=== PATIENT | female | born 1930 | race Caucasian/White ===

== ENCOUNTER 2016-07-09 20:08 | Emergency (ER) | payer SELFPAY ==
[~2016-07-09] VITALS: Ht 149.9 cm; Wt 50.0 kg
[~2016-07-09 20:08] MED LIST: ASPI-535 PO; BENA40TA54 PO; CARV25TA79 PO; CHOL1POW PO; CLOP75TA27 PO
[2016-07-09 20:30] VITALS: Ht 149.9 cm; Wt 50.0 kg
[2016-07-09] MEDS ORDERED: ONDANSETRON (ODT) 4 MG TAB ODT STA (21:26)
[2016-07-09] MEDS ORDERED: HYDROCODONE/APAP (10/325) TAB PO ONE (21:30)
[2016-07-09] MEDS ORDERED: DOCU-144 PO (22:37)
[2016-07-09] MEDS ORDERED: HYDR-902 PO (22:37)
--- NOTE | 2016-07-09 22:51 | RADRPT ---
PROCEDURE: XR Right Shoulder. CLINICAL INDICATION: Trauma. Pain. TECHNIQUE: Three views of the right shoulder are available for review. COMPARISON: None available FINDINGS: No acute fracture or dislocation is seen. The glenohumeral joint is unremarkable. Ossific density s uperior lateral aspect of the humeral head is likely related to rotator cuff ligamentous calcificati ons. The acromioclavicular joint is intact. The visualized portions of the right clavicle and upper right rib cage are unremarkable. No radiopaque foreign body is identified. Bone mineralization is within normal limits. Soft tissues are unremarkable. IMPRESSION: 1. No acute fracture or dislocation is seen. 2. Probable rotator cuff calcifications. RPTAT: HMVK .Charles Biggs MD, Date Time Electronically viewed and signed by .Charles Biggs MD, on 07/09/2016 22:50 .K/
--- NOTE | 2016-07-09 22:51 | RADRPT ---
PROCEDURE: XR Elbow. CLINICAL INDICATION: Post traumatic right elbow pain TECHNIQUE: AP, lateral and oblique views of the right elbow performed. COMPARISON: None. FINDINGS: Decreased mineralization cannot exclude osteopenia. Abnormal longitudinal fracture lucency through t he medial epicondyle extends to the articular surface of the trochlea . Mild cephalad displacement o f the medial fracture fragment by 6 mm is present. The proximal radius and ulna are unremarkable di ffuse soft tissue swelling is noted. A probable joint effusion is seen. RPTAT:HJJR IMPRESSION: Acute, closed, mildly displaced medial humeral epicondyle fracture of the right elbow with intra-art icular extension. Physician Violette Date Time Electronically viewed and signed by Physician Violette on 07/09/2016 22:51 /
[2016-07-09 22:58] VITALS: BP 148/92; PULSE 76; RESP 24
--- NOTE | 2016-07-09 23:16 | ERD ---
ER Documentation Chief Complaint Date/Time DATE: 07/09/16 TIME: 23:13 Chief Complaint MECH FALL SAT, RIGHT ARM SWELLING PAIN. POSS FX. NO KO HPI Patient is an 86-year-old female with CVA and hypertension who presents with right-sided arm pain. She fell on Saturday. She has right-sided elbow pain with bruising and swelling. She fell off one step at that time. The bruising is gotten worse over the past few days. The patient lives with her daughter. She is right-handed. She took ibuprofen today. She denies any other injuries. She does not currently have a primary doctor. Upon review of old medical records this the patient's third visit to the ER since 2012. ROS All systems reviewed and are negative except as per history of present illness. Medications Home Meds Active Scripts Docusate Sodium* (Colace*) 100 Mg Capsule, 100 MG PO TID, #30 CAP Prov:SKYLA YAO MD 07/09/16 Hydrocodone/Acetaminophen ([place] 10-325 Tablet) 1 Each Tablet, 1 TAB PO Q6H Y for PAIN, #12 TAB Prov:SKYLA YAO MD 07/09/16 Reported Medications Aspirin Ec (Aspir 81) 81 Mg Tablet.dr, 81 MG PO DAILY 08/02/12 Clopidogrel Bisulfate (Clopidogrel) 75 Mg Tablet, 75 MG PO DAILY 08/02/12 Benazepril Hcl* (Lotensin*) 40 Mg Tablet, 40 MG PO DAILY 08/02/12 Carvedilol* (Carvedilol*) 25 Mg Tablet, 25 MG PO BID 08/02/12 Discontinued Reported Medications Cholecalciferol (Vitamin D3) 1 Gm Powder, 1000 UNITS PO TID 08/02/12 Allergies Allergies: Coded Allergies: dextromethorphan (Verified Allergy, Intermediate, SWELLING, 07/09/16) SWOLLEN LIPS, WHEEZING guaifenesin (Unverified Allergy, Intermediate, WHEEZING, 07/09/16) WHEEZING PER EMS PMhx/Soc History of Surgery: No Anesthesia Reaction: No Hx Neurological Disorder: No Hx Respiratory Disorders: No Hx Cardiac Disorders: Yes (HTN) Hx Psychiatric Problems: No Hx Miscellaneous Medical Probl: No Hx Alcohol Use: No Hx Substance Use: No Hx Tobacco Use: No Smoking Status: Never smoker FmHx Family History: diabetes Physical Exam Vitals Vital Signs Date Time Temp Pulse Resp B/P Pulse Ox O2 Delivery O2 Flow Rate FiO2 07/09/16 22:58 76 24 148/92 99 Room Air 07/09/16 20:30 98.0 76 20 139/89 100 Physical Exam Const: Mild distress secondary to pain Head: Atraumatic Eyes: Normal Conjunctiva ENT: Normal External Ears, Nose and Mouth. Neck: Full range of motion..~ No meningismus. Resp: Clear to auscultation bilaterally Cardio: Regular rate and rhythm, no murmurs Abd: Soft, non tender, non distended. Normal bowel sounds Skin: Significant bruising of the right elbow with swelling Back: No midline or flank tenderness Ext: Bruising and swelling to the right elbow, radial pulse is intact in the right upper extremity Neur: Awake and alert, 3 nerve roots of the right upper extremity are intact Psych: Normal Mood and Affect Results 24 hrs Current Medications Medications (Trade) Dose Ordered Sig/Norris Route PRN Reason Start Time Stop Time Status Last Admin Dose Admin Acetaminophen/ Hydrocodone Bitart ([place] (325)) 1 tab ONCE ONCE PO 07/09/16 21:30 07/09/16 21:31 DC 07/09/16 21:39 Ondansetron HCl (Zofran Odt) 4 mg ONCE STAT ODT 07/09/16 21:26 07/09/16 21:27 DC 07/09/16 21:39 Procedures/MDM X-ray Elbow 3V Interpreted by me: Fat Pads: [Normal] Bones: Elbow fracture Joints: [No dislocation] Foreign body: [None] X-ray Shoulder 3V Interpreted by me: Bones: No fracture Joints: No dislocation Foreign body: None Splint Note Type: Posterior long-arm Location: Right upper extremity Indication: Elbow fracture Splint Assessment: Neurovascularly intact post splint placement with good fit. Patient is a 86-year-old female who presents after a mechanical fall. She has an elbow fracture. She will be placed in a splint and sling. She will need follow-up with orthopedic surgery. I will give her information for Dr. Ramon. I do not believe she requires admission to the hospital this time. I believe outpatient management is appropriate. The patient understands the plan is okay for discharge. She will be given a prescription for Spalding and Colace. She can return for any worsening symptoms. Departure Diagnosis: Primary Impression: Elbow fracture Encounter type: initial encounter Fracture type: closed Laterality: right Qualified Code: S42.401A - Elbow fracture, right, closed, initial encounter Additional Impression: Fall Encounter type: initial encounter Qualified Code: W19.XXXA - Fall, initial encounter Condition: Fair Patient Instructions: Elbow Fracture Referrals: DANIELA RAMON MD Additional Instructions: Specialist:Usted tiene sebastian condicin mdica que requiere que yulia a un especialista dentro de los prximos 1-2 [email or web address] FAVOR,CON ROBERTS SEGUIMIENTO DE PRIMARIA PHSICIAN refferal. SI USTED NO TIENE UN MDICO GENERAL Y / O USTED NO PUEDE PAGAR alicia a un mdico,los siguientes jordan RECURSOS sido suministrado a usted. ES ROBERTS RESPONSABILIDAD PARA SER VISTOS POR EL ESPECIALISTA: SKYLA YAO MD Jul 09, 2016 23:16
== END 2016-07-09 23:28 | disposition home or self-care (01) ==
LOC: E/R 20:08
DX: S42.401A Unspecified fracture of lower end of right humerus, initial encounter for closed fracture (principal); R40.2252 Coma scale, best verbal response, oriented, at arrival to emergency department; I10 Essential (primary) hypertension; R40.2142 Coma scale, eyes open, spontaneous, at arrival to emergency department; R40.2362 Coma scale, best motor response, obeys commands, at arrival to emergency department; W18.39XA Other fall on same level, initial encounter; Y92.9 Unspecified place or not applicable; Z79.82 Long term (current) use of aspirin; Z79.01 Long term (current) use of anticoagulants

== ENCOUNTER 2016-07-15 15:50 | Emergency (ER) | payer MEDICAID ==
[~2016-07-15] VITALS: Ht 142.2 cm; Wt 51.0 kg
[~2016-07-15 15:50] MED LIST changes: -CHOL1POW PO; +DOCU-144 PO; +HYDR-902 PO
[2016-07-15 15:54] VITALS: Ht 142.2 cm; Wt 51.0 kg
--- NOTE | 2016-07-15 16:59 | ERD ---
ER Documentation Chief Complaint Date/Time DATE: 07/15/16 TIME: 16:57 Chief Complaint r. arm bleeding after fall x 4 days ago HPI This 86 year female who was seen at outside ER and sustained a distal humerus fracture scheduled for surgery tomorrow is having some bleeding coming out underneath her splint. There is been no other injury and she is not complaining of any pain in the family is here concerned as to why she is bleeding. ROS All systems reviewed and are negative except as per history of present illness. Medications Home Meds Active Scripts Docusate Sodium* (Colace*) 100 Mg Capsule, 100 MG PO TID, #30 CAP Prov:SKYLA YAO MD 07/09/16 Hydrocodone/Acetaminophen ([place] 10-325 Tablet) 1 Each Tablet, 1 TAB PO Q6H Y for PAIN, #12 TAB Prov:SKYLA YAO MD 07/09/16 Reported Medications Aspirin Ec (Aspir 81) 81 Mg Tablet.dr, 81 MG PO DAILY 08/02/12 Clopidogrel Bisulfate (Clopidogrel) 75 Mg Tablet, 75 MG PO DAILY 08/02/12 Benazepril Hcl* (Lotensin*) 40 Mg Tablet, 40 MG PO DAILY 08/02/12 Carvedilol* (Carvedilol*) 25 Mg Tablet, 25 MG PO BID 08/02/12 Discontinued Reported Medications Cholecalciferol (Vitamin D3) 1 Gm Powder, 1000 UNITS PO TID 08/02/12 Allergies Allergies: Coded Allergies: dextromethorphan (Verified Allergy, Intermediate, SWELLING, 07/15/16) SWOLLEN LIPS, WHEEZING guaifenesin (Unverified Allergy, Intermediate, WHEEZING, 07/15/16) WHEEZING PER EMS PMhx/Soc History of Surgery: No Anesthesia Reaction: No Hx Neurological Disorder: Yes (CVA) Hx Respiratory Disorders: No Hx Cardiac Disorders: Yes (HTN) Hx Psychiatric Problems: No Hx Miscellaneous Medical Probl: No Hx Alcohol Use: No Hx Substance Use: No Hx Tobacco Use: No Smoking Status: Never smoker FmHx Family History: No coronary disease Physical Exam Vitals Vital Signs Date Time Temp Pulse Resp B/P Pulse Ox O2 Delivery O2 Flow Rate FiO2 07/15/16 15:54 97.5 78 18 145/67 95 Physical Exam Const: Well-developed, well-nourished Head: Atraumatic, normocephalic Eyes: Normal Conjunctiva, PERRLA, EOMI, normal sclera, no nystagmus ENT: Normal External Ears, Nose and Mouth, moist mucus membranes. Neck: Full range of motion. No meningismus, no lymphadenopathy. Resp: Clear to auscultation bilaterally, no wheezing, rhonchi, rales Cardio: Regular rate and rhythm, no murmurs, S1 S2 present Abd: Soft, non tender x 4, non distended. Normal bowel sounds, no guarding or rebound, no pulsitile abdominal masses or bruits Skin: No petechiae or rashes, no ecchymosis , no maculopapular rash, the cast splint was removed and there is a linear skin abrasion/tear along the proximal forearm is not bleeding now that is about 5 cm in length is not suturable Back: No midline or flank tenderness Ext: No cyanosis, or edema, FROM x 4, normal inspection, neurovascularly intact x 4 Neur: Awake and alert, STR 5/5 x 4, sensation intact x 4, no focal findings, cerebellum intact Psych: Normal Mood and Affect Procedures/MDM Splint removal and replacement Departure Diagnosis: Primary Impression: Skin tear of forearm without complication Encounter type: initial encounter Laterality: right Qualified Code: S51.811A - Skin tear of forearm without complication, right, initial encounter Condition: Stable Patient Instructions: CARLOS Zimmerman DO Jul 15, 2016 16:59
[2016-07-15 17:05] VITALS: BP 139/66; PULSE 79; RESP 18; TEMP 97.5
== END 2016-07-15 17:11 | disposition home or self-care (01) ==
LOC: E/R 15:50
DX: S51.811A Laceration without foreign body of right forearm, initial encounter (principal); R40.2252 Coma scale, best verbal response, oriented, at arrival to emergency department; I10 Essential (primary) hypertension; R40.2142 Coma scale, eyes open, spontaneous, at arrival to emergency department; R40.2362 Coma scale, best motor response, obeys commands, at arrival to emergency department; X58.XXXA Exposure to other specified factors, initial encounter; Y92.9 Unspecified place or not applicable; Z79.82 Long term (current) use of aspirin; Z79.01 Long term (current) use of anticoagulants
CPT/HCPCS: 29105; Z7502

== ENCOUNTER 2018-05-15 12:03 | Emergency (ER) | payer MEDICAID, OTHER ==
[~2018-05-15] VITALS: Ht 152.4 cm; Wt 50.0 kg
[~2018-05-15 12:03] MED LIST changes: +HYDR-3980 PO; -HYDR-902 PO
[2018-05-15] MEDS ORDERED: FAMOTIDINE 20 MG INJ IV STA (12:05)
[2018-05-15] MEDS ORDERED: BELLADONNA/PHENOBARBITAL TAB PO STA (12:05)
[2018-05-15] MEDS ORDERED: ONDANSETRON 4 MG INJ IV STA (12:05)
[2018-05-15] MEDS ORDERED: LIDOCAINE/MYLANTA 40 ML BTL PO STA (12:05)
[2018-05-15] MEDS ORDERED: SOD CHLORIDE 0.9% 1,000 ML IV STA (12:05)
[2018-05-15] MEDS ORDERED: LORAZEPAM 2 MG INJ IV ONE (12:30)
[2018-05-15 12:31] VITALS: Ht 152.4 cm; Wt 50.0 kg
[2018-05-15] MEDS ORDERED: DONE10TA7 PO (13:19)
[2018-05-15 15:19] VITALS: BP 120/74; PULSE 49; RESP 18
--- NOTE | 2018-05-16 09:09 | ERD ---
ER Documentation Chief Complaint Chief Complaint nausea, dizziness s/p starting Aricept 10mg at 0930am HPI This is an 88-year-old female with a known history of dementia. The patient presents to the emergency department after she had a sudden onset of nausea dizziness and tearfulness roughly 30 minutes after taking her first dose of Aricept. The patient was prescribed 10 mg of Aricept to take on a daily basis per primary care physician. She lives with her daughter who helps her to attend her activities of daily living. The daughter stated she gave the Aricept to the patient there is no coughing choking or gagging episode. Shortly afterwards she found the patient in the bathroom sitting on the toilet crying. There is no syncope or near syncope episode. There is no shortness of breath. The patient denied a headache. She stated she felt nauseous and dizzy. She had one episode of nonbloody nonbilious emesis. She denied any abdominal pain. She no frequency urgency or dysuria. There is no blunt or penetrating head chest or abdominal trauma. ROS All systems reviewed and are negative except as per history of present illness. Medications Home Meds Reported Medications Donepezil* (Aricept*) 10 Mg Tablet, 10 MG PO DAILY, TAB 05/15/18 Clopidogrel Bisulfate (Clopidogrel) 75 Mg Tablet, 75 MG PO DAILY 08/02/12 Benazepril Hcl* (Lotensin*) 40 Mg Tablet, 40 MG PO DAILY 08/02/12 Carvedilol* (Carvedilol*) 25 Mg Tablet, 25 MG PO BID 08/02/12 Discontinued Reported Medications Aspirin Ec (Aspir 81) 81 Mg Tablet.dr, 81 MG PO DAILY 08/02/12 Discontinued Scripts Docusate Sodium* (Colace*) 100 Mg Capsule, 100 MG PO TID, #30 CAP Prov:SKYLA YAO MD 07/09/16 Hydrocodone/Acetaminophen ([place] 10-325 Tablet) 1 Each Tablet, 1 TAB PO Q6H PRN for PAIN, #12 TAB Prov:SKYLA YAO MD 07/09/16 Allergies Allergies: Coded Allergies: dextromethorphan (Verified Allergy, Intermediate, SWELLING, 07/15/16) SWOLLEN LIPS, WHEEZING guaifenesin (Unverified Allergy, Intermediate, WHEEZING, 07/15/16) WHEEZING PER EMS PMhx/Soc History of Surgery: No Anesthesia Reaction: No Hx Neurological Disorder: Yes (CVA) Hx Respiratory Disorders: No Hx Cardiac Disorders: Yes (HTN) Hx Psychiatric Problems: Yes (early dementia) Hx Miscellaneous Medical Probl: Yes (Vit D deficiency) Hx Alcohol Use: No Hx Substance Use: No Hx Tobacco Use: No Smoking Status: Never smoker Physical Exam Vitals Vital Signs Date Temp Pulse Resp B/P (MAP) Pulse Ox O2 O2 Flow FiO2 Time Delivery Rate 05/15/18 49 18 120/74 99 Room Air 15:19 (89) 05/15/18 98.8 57 22 176/85 95 12:31 (115) Physical Exam Constitutional:Well-developed. Well-nourished. Patient tearful and dry heaving. HEENT:Normocephalic. Atraumatic.Pupils were equal round reactive to light. Dry mucous membranes.No tonsillar exudates. Neck: No nuchal rigidity. No lymphadenopathy. No posterior cervical spine tenderness or step-offs. Respiratory: Not using accessory muscles of respiration.Lungs were clear to auscultation bilaterally. No rhonchi. No rales. No wheezing. Cardiovascular: Regular rate regular rhythm.No murmurs. No rubs were ap preciated.S1, S2 normal. Distal pulses are palpable 2+ bilaterally. GI: Abdomen was soft. Nontender. Non Distended. No pulsatile abdominal masses or bruits. No rebound. No guarding. Bowel sounds were present and normal. Muscle skeletal: Full range of motion of both the upper and lower extremities b ilaterally.Normal muscle tone.No assymetrical calf tenderness or swelling. Skin: No petechia, no purpura. No lesions on the palms or the soles of the feet. No maculopapular rash. NEURO: Patient was alert, awake, orientated to person place but not to time. Patient is [place]-speaking. Patient was able to ambulate without any difficulty Result Diagram: 05/15/18 1240 05/15/18 1240 Results 24 hrs Laboratory Tests Test 05/15/18 12:40 05/15/18 14:41 White Blood Count 8.5 10^3/ul Red Blood Count 4.88 10^6/ul Hemoglobin 13.7 g/dl Hematocrit 41.8 % Mean Corpuscular Volume 85.7 fl Mean Corpuscular Hemoglobin 28.1 pg Mean Corpuscular Hemoglobin Concent 32.8 g/dl Red Cell Distribution Width 14.5 % Platelet Count 169 10^3/UL Mean Platelet Volume 11.3 fl Immature Granulocytes % 0.700 % Neutrophils % 64.7 % Lymphocytes % 21.7 % Monocytes % 11.0 % Eosinophils % 1.2 % Basophils % 0.7 % Nucleated Red Blood Cells % 0.0 /100WBC Immature Granulocytes # 0.060 10^3/ul Neutrophils # 5.5 10^3/ul Lymphocytes # 1.8 10^3/ul Monocytes # 0.9 10^3/ul Eosinophils # 0.1 10^3/ul Basophils # 0.1 10^3/ul Nucleated Red Blood Cells # 0.0 10^3/ul Prothrombin Time 12.8 Sec Prothrombin Time Ratio 1.0 INR International Normalized Ratio 0.95 Activated Partial Thromboplast Time 23.9 Sec Sodium Level 140 mmol/L Potassium Level 4.7 mmol/L Chloride Level 102 mmol/L Carbon Dioxide Level 27 mmol/L Anion Gap 11 Blood Urea Nitrogen 25 mg/dl Creatinine 0.63 mg/dl Est Glomerular Filtrat Rate mL/min mL/min Glucose Level 117 mg/dl Calcium Level 10.0 mg/dl Total Bilirubin 0.4 mg/dl Direct Bilirubin 0.00 mg/dl Indirect Bilirubin 0.4 mg/dl Aspartate Amino Transf (AST/SGOT) 31 IU/L Alanine Aminotransferase (ALT/SGPT) 14 IU/L Alkaline Phosphatase 94 IU/L Troponin I < 0.012 ng/ml Total Protein 8.4 g/dl Albumin 4.3 g/dl Globulin 4.10 g/dl Albumin/Globulin Ratio 1.04 Amylase Level 124 U/L Lipase 64 U/L Urine Color STRAW Urine Clarity CLEAR Urine pH 7.0 Urine Specific [place] 1.011 Urine Ketones TRACE mg/dL Urine Nitrite NEGATIVE mg/dL Urine Bilirubin NEGATIVE mg/dL Urine Urobilinogen NEGATIVE mg/dL Urine Leukocyte Esterase NEGATIVE Cindy/ul Urine Hemoglobin NEGATIVE mg/dL Urine Glucose NEGATIVE mg/dL Urine Total Protein NEGATIVE mg/dl Current Medications Medications Dose Sig/Norris Start Time Status Last (Trade) Ordered Route PRN Stop Time Admin Dose Reason Admin Sodium 1,000 ml @ Q1H STAT 05/15/18 DC 05/15/18 Chloride 1,000 mls/hr IV 12:05 13:03 05/15/18 13:04 Ondansetron 4 mg ONCE STAT 05/15/18 DC 05/15/18 HCl (Zofran IV 12:05 13:03 Inj) 05/15/18 12:08 Famotidine 20 mg ONCE STAT 05/15/18 DC 05/15/18 (Pepcid Iv) IV 12:05 13:03 05/15/18 12:08 40 ml ONCE STAT 05/15/18 DC 05/15/18 Miscellaneous PO 12:05 13:03 Medication 05/15/18 12:08 (Gi Cocktail (2)) Bell[place]onna/ 2 tab ONCE STAT 05/15/18 DC 05/15/18 Phenobarbital PO 12:05 13:03 () 05/15/18 12:08 Lorazepam 1 mg ONCE ONCE 05/15/18 DC 05/15/18 (Ativan) IV 12:30 13:03 05/15/18 12:31 Procedures/MDM This is an 88-year-old female that presented to the emergency department after she appeared to have an adverse reaction to medication. I did feel is necessary to rule out other life-threatening etiologies that could be causing the patient's changes in her mental status. There is no evidence of an infectious process such as pneumonia. Chest radiograph showed no infiltrates or pneumothorax and no evidence of aspiration pneumonia or foreign body aspiration. Urinalysis was negative for urinary tract infection. The patient had no electrolyte abnormalities. The patient's abdomen was benign with no peritoneal signs. The patient received IV fluids that she did appear to have clinical dehydration. There is no evidence of atypical myocardial infarction. 12 Lead EKG tracing ordered and reviewed by myself showed: Normal sinus rhythm of 61 bpm and no arrhythmia. HI interval normal. QRS duration normal. No ST segment elevation No ST segment depression. No changes consistent with acute ischemia. Observation Note: Time: 4 hours Family Hx: No Hypertension Evaluation: Multiple exams showed improving symptoms and no evidence of worsening of her symptoms. She had significant improvement of her symptoms. I explained to the family that I felt it was necessary for them to follow-up with her primary care physician to discuss continuation of the Aricept. However I also indicated to the family that this could have been an unrelated incident of of an acute anxiety reaction. The patient was discharged home in fair condition. They were instructed to return to the emergency department at any time if there was any worsening of their condition. The patient stated they would follow up with their PCP in the next 24-48 hours to initiate a suitable medication regimen under the care of their PCP as well as to allow their PCP to monitor any drug reactions. The patient was discharged home with prescriptions after they gave informed consent to the new medication. They were also fully informed by myself on the adverse effects and adverse drug interactions in order to provide adequate safeguards to prevent possible adverse reactions to medications. Departure Diagnosis: Primary Impression: Adverse drug reaction Encounter type: initial encounter Qualified Codes: T50.905A - Adverse effect of unspecified drugs, medicaments and biological substances, initial encounter Additional Impression: Nausea and vomiting Vomiting type: unspecified Vomiting Intractability: non-intractable Qualified Codes: R11.2 - Nausea with vomiting, unspecified Condition: Fair Patient Instructions: Drug Reaction, Other Referrals: JEFFRY VANG MD (PCP) JIAN MIRZA MD May 16, 2018 09:08
== END 2018-05-15 15:55 | disposition home or self-care (01) ==
LOC: E/R 12:03
DX: T44.0X1A Poisoning by anticholinesterase agents, accidental (unintentional), initial encounter (principal); I10 Essential (primary) hypertension; R10.9 Unspecified abdominal pain; Z86.73 Personal history of transient ischemic attack (TIA), and cerebral infarction without residual deficits
CPT/HCPCS: 71045; 80053; 81003; 82150; 83690; 84484; 85025; 85610; 85730; 87086; 93005; J2060; J2405; J7030; Z7610; 96374; 96375; P9612

== ENCOUNTER 2018-06-05 11:07 | Emergency (ER) | payer OTHER ==
[~2018-06-05] VITALS: Ht 152.4 cm; Wt 45.0 kg
[~2018-06-05 11:07] MED LIST changes: -ASPI-535 PO; -DOCU-144 PO; +DONE10TA7 PO; -HYDR-3980 PO
[2018-06-05 11:23] VITALS: Ht 152.4 cm; Wt 45.0 kg
[2018-06-05] MEDS ORDERED: ONDANSETRON 4 MG INJ IV STA (11:39)
[2018-06-05] MEDS ORDERED: LIDOCAINE/MYLANTA 40 ML BTL PO STA (11:39)
[2018-06-05] MEDS ORDERED: BELLADONNA/PHENOBARBITAL TAB PO STA (11:39)
[2018-06-05] MEDS ORDERED: SOD CHLORIDE 0.9% 1,000 ML IV STA (11:39)
--- NOTE | 2018-06-05 11:40 | ERD ---
ER Documentation Chief Complaint Chief Complaint BIB RA FOR EVAL OF N/V TODAY. HPI 88-year-old woman brought in by EMS for dizziness nausea and episode of clear nonbloody nonbilious emesis. She denies fevers or chills, no headache, no chest pain or shortness of breath, no slurred speech, no gait ataxia. Patient was retching upon EMS arrival and transported here without further complications. ROS All systems reviewed and are negative except as per history of present illness. Medications Home Meds Active Scripts Ondansetron Hcl* (Zofran*) 4 Mg Tablet, 4 MG PO Q8H PRN for NAUSEA AND/OR VOMITING, #30 TAB Prov:LISA MENDOZA MD 06/05/18 Reported Medications Donepezil* (Aricept*) 10 Mg Tablet, 10 MG PO DAILY, TAB 05/15/18 Clopidogrel Bisulfate (Clopidogrel) 75 Mg Tablet, 75 MG PO DAILY 08/02/12 Benazepril Hcl* (Lotensin*) 40 Mg Tablet, 40 MG PO DAILY 08/02/12 Carvedilol* (Carvedilol*) 25 Mg Tablet, 25 MG PO BID 08/02/12 Allergies Allergies: Coded Allergies: dextromethorphan (Verified Allergy, Intermediate, SWELLING, 07/15/16) SWOLLEN LIPS, WHEEZING guaifenesin (Unverified Allergy, Intermediate, WHEEZING, 07/15/16) WHEEZING PER EMS PMhx/Soc Hypertension, dementia, bradycardia History of Surgery: No Anesthesia Reaction: No Hx Neurological Disorder: Yes (CVA) Hx Respiratory Disorders: No Hx Cardiac Disorders: Yes (HTN) Hx Psychiatric Problems: Yes (early dementia) Hx Miscellaneous Medical Probl: Yes (Vit D deficiency) Hx Alcohol Use: No Hx Substance Use: No Hx Tobacco Use: No FmHx Family History: No diabetes Physical Exam Vitals Vital Signs Date Temp Pulse Resp B/P (MAP) Pulse Ox O2 O2 Flow FiO2 Time Delivery Rate 06/05/18 66 20 129/52 98 Nasal 13:07 (77) Cannula 06/05/18 97.1 46 16 114/73 99 11:23 (87) Physical Exam GENERAL: Well-developed, well-nourished, nauseous, afebrile HEENT: Moist mucous membranes, pink conjunctiva, no cervical spine tenderness or step-off deformities, no goiter, no jaundice or icterus, extraocular movements intact without pain. No submandibular induration, and no pharyngeal erythema NEURO: Alert and oriented 3, cranial nerves II through XII intact bilaterally, pupils equal round reactive to light, no focal deficits or facial asymmetry, sensation intact distally Strength 5/5 in upper and lower extremities bilaterally CARDIAC: Bradycardic and regular, no murmurs rubs or gallops LUNGS: Clear bilaterally no wheezing crackles or stridor ABDOMEN: Soft nontender, no guarding, no rigidity, no rebound, no psoas sign no obturator sign. Normoactive bowel sounds SKIN: Warm and dry to touch, no abrasions, contusions, or hematomas, no lacerations, no ecchymosis, no target lesions, and without ulcers EXTREMITIES: No clubbing cyanosis or edema, calves are bilaterally symmetrical, no Homans sign, no popliteal cord sign. Distal pulses equal and bilateral PSYCH: Normal affect without agitation or irritability Result Diagram: 06/05/18 1203 06/05/18 1203 Results 24 hrs Laboratory Tests Test 06/05/18 12:03 White Blood Count 7.4 10^3/ul Red Blood Count 4.46 10^6/ul Hemoglobin 12.7 g/dl Hematocrit 39.3 % Mean Corpuscular Volume 88.1 fl Mean Corpuscular Hemoglobin 28.5 pg Mean Corpuscular Hemoglobin Concent 32.3 g/dl Red Cell Distribution Width 14.8 % Platelet Count 164 10^3/UL Mean Platelet Volume 11.5 fl Immature Granulocytes % 0.700 % Neutrophils % 69.0 % Lymphocytes % 21.2 % Monocytes % 7.7 % Eosinophils % 1.0 % Basophils % 0.4 % Nucleated Red Blood Cells % 0.0 /100WBC Immature Granulocytes # 0.050 10^3/ul Neutrophils # 5.1 10^3/ul Lymphocytes # 1.6 10^3/ul Monocytes # 0.6 10^3/ul Eosinophils # 0.1 10^3/ul Basophils # 0.0 10^3/ul Nucleated Red Blood Cells # 0.0 10^3/ul Sodium Level 146 mmol/L Potassium Level 3.2 mmol/L Chloride Level 116 mmol/L Carbon Dioxide Level 22 mmol/L Anion Gap 8 Blood Urea Nitrogen 24 mg/dl Creatinine 0.60 mg/dl Est Glomerular Filtrat Rate mL/min mL/min Glucose Level 132 mg/dl Calcium Level 6.8 mg/dl Total Bilirubin 0.3 mg/dl Direct Bilirubin 0.00 mg/dl Indirect Bilirubin 0.3 mg/dl Aspartate Amino Transf (AST/SGOT) 15 IU/L Alanine Aminotransferase (ALT/SGPT) 23 IU/L Alkaline Phosphatase 57 IU/L Troponin I < 0.012 ng/ml Total Protein 5.4 g/dl Albumin 2.6 g/dl Globulin 2.80 g/dl Albumin/Globulin Ratio 0.92 Lipase 44 U/L Current Medications Medications Dose Sig/Norris Start Time Status Last (Trade) Ordered Route PRN Stop Time Admin Dose Reason Admin Sodium 1,000 ml @ Q1H STAT 06/05/18 DC 06/05/18 Chloride 1,000 mls/hr IV 11:39 06/05/18 12:27 12:38 Ondansetron 4 mg ONCE STAT 06/05/18 DC 06/05/18 HCl (Zofran IV 11:39 06/05/18 12:26 Inj) 11:43 40 ml ONCE STAT 06/05/18 DC 06/05/18 Miscellaneous PO 11:39 06/05/18 12:26 Medication 11:43 (Gi Cocktail (2)) Belladonna/ 2 tab ONCE STAT 06/05/18 DC 06/05/18 Phenobarbital PO 11:39 06/05/18 12:27 () 11:43 Procedures/MDM IV line was established patient was placed on awake overnight monitor rhythm strip revealed a narrow complex bradycardia at 40 bpm with upright P and T waves. Patient was afebrile EKG was performed, read by me revealed a sinus bradycardia 48 bpm, normal axis, narrow QRS complex, no concerning ST elevations or depressions noted One AP view of the chest performed, read by me reveals no acute infiltrates, normal mediastinum, sharp costophrenic and cardiac borders, no air under the diaphragm. Otherwise unremarkable chest x-ray. CT scan of the brain was performed was negative for acute bleed mass or shift I administered 1 L normal saline IV, Zofran 4 mg IV, and a GI cocktail p.o. CBC was normal, electrolytes revealed mild dehydration, liver function tests normal, troponin negative, urinalysis is pending I will follow-up. Departure Diagnosis: Primary Impression: Nausea and vomiting Vomiting type: unspecified Vomiting Intractability: non-intractable Qualified Codes: R11.2 - Nausea with vomiting, unspecified Additional Impression: Dehydration Condition: Good LISA MENDOZA MD Jun 05, 2018 11:40
[2018-06-05 13:07] VITALS: BP 129/52; PULSE 66; RESP 20
[2018-06-05] MEDS ORDERED: ONDA4TAB8 PO (13:07)
== END 2018-06-05 15:30 | disposition home or self-care (01) ==
LOC: E/R 11:07
DX: R11.2 Nausea with vomiting, unspecified (principal); E86.0 Dehydration; I10 Essential (primary) hypertension; R42 Dizziness and giddiness; Z86.73 Personal history of transient ischemic attack (TIA), and cerebral infarction without residual deficits; Z79.01 Long term (current) use of anticoagulants
CPT/HCPCS: 70450; 71045; 80053; 81003; 83690; 84484; 85025; 93005; J2405; J7030; Z7610; 36415; 96374

== ENCOUNTER 2018-06-30 13:59 | Emergency (ER) | payer SELFPAY ==
[~2018-06-30] VITALS: Ht 154.9 cm; Wt 47.7 kg
[~2018-06-30 13:59] MED LIST changes: +ONDA4TAB8 PO
--- NOTE | 2018-06-30 14:22 | ERD ---
ER Documentation Chief Complaint Chief Complaint Fall HPI The patient is a 88-year-old female, presenting to the ER because she had a mechanical fall, complaining of lower back pain, denies headache, facial pain, neck pain, chest pain, dyspnea, abdominal pain, vomiting. She is ambulating without any difficulty. Past medical history: History of CVA, hypertension Past surgical history: Cholecystectomy ROS All systems reviewed and are negative except as per history of present illness. Medications Home Meds Active Scripts Acetaminophen* (Acetaminophen*) 650 Mg Tablet, 650 MG PO Q6H PRN for PAIN AND OR ELEVATED TEMP, #30 TAB Prov:ALICE ESTRADA MD 06/30/18 Reported Medications Donepezil* (Aricept*) 10 Mg Tablet, 10 MG PO DAILY, TAB 05/15/18 Clopidogrel Bisulfate (Clopidogrel) 75 Mg Tablet, 75 MG PO DAILY 08/02/12 Benazepril Hcl* (Lotensin*) 40 Mg Tablet, 40 MG PO DAILY 08/02/12 Carvedilol* (Carvedilol*) 25 Mg Tablet, 25 MG PO BID 08/02/12 Discontinued Scripts Ondansetron Hcl* (Zofran*) 4 Mg Tablet, 4 MG PO Q8H PRN for NAUSEA AND/OR VOMITING, #30 TAB Prov:LISA MENDOZA MD 06/05/18 Allergies Allergies: Coded Allergies: dextromethorphan (Verified Allergy, Intermediate, SWELLING, 06/30/18) SWOLLEN LIPS, WHEEZING guaifenesin (Unverified Allergy, Intermediate, WHEEZING, 06/30/18) WHEEZING PER EMS PMhx/Soc History of Surgery: No Anesthesia Reaction: No Hx Neurological Disorder: Yes (CVA) Hx Respiratory Disorders: No Hx Cardiac Disorders: Yes (HTN) Hx Psychiatric Problems: Yes (early dementia) Hx Miscellaneous Medical Probl: Yes (Vit D deficiency) Hx Alcohol Use: No Hx Substance Use: No Hx Tobacco Use: No Physical Exam Vitals Vital Signs Date Temp Pulse Resp B/P (MAP) Pulse Ox O2 O2 Flow FiO2 Time Delivery Rate 06/30/18 18 148/86 97 Room Air 17:00 (106) 06/30/18 98.2 83 18 152/94 96 14:27 (113) Physical Exam Const: No acute distress. Head: Atraumatic. Eyes: Normal Conjunctiva. ENT: Normal External Ears, Nose and Mouth. Neck: Full range of motion. No meningismus. Resp: Clear to auscultation bilaterally. Cardio: Regular rate and rhythm. Abd: Soft, non distended, normal bowel sounds, non tender. Skin: No petechiae or rashes. Back: No midline or flank tenderness. Ext: No cyanosis, or edema. Neur: Awake and alert. No focal deficit Psych: Normal Mood and Affect. Results 24 hrs Current Medications Medications Dose Sig/Norris Start Time Status Last (Trade) Ordered Route PRN Stop Time Admin Dose Reason Admin 650 mg ONCE ONCE 06/30/18 DC 06/30/18 Acetaminophen PO 15:30 06/30/18 15:30 (Tylenol 15:31 Tab) Procedures/[place] [id number] Radiology Main Line: [phone] DIAGNOSTIC IMAGING REPORT Patient: MARLEEN CENTENO : 1930 Age: 88 Sex: F MR #: [id number] DOS: 06/30/18 1523 Ordering MD: ALICE ESTRADA MD Location: E/R Room/Bed: PROCEDURE: XR Lumbar Spine. CLINICAL INDICATION: pain TECHNIQUE: AP, lateral and cone-down lateral view of the lumbar spine were obtained. COMPARISON: No prior studies are available for comparison. FINDINGS: No acute appearing fracture detected, however evaluation is limited by severe osteopenia. Normal lordosis without significant vertebral body subluxation. Mild disc space narrowing at L5-S1. Moderate to severe facet arthropathy from L4-S1. Moderate calcified arterial atherosclerosis. IMPRESSION: No acute appearing fracture detected, however severe osteopenia limits evaluation. Multilevel spondylosis, most pronounced in the lower lumbar spine where there is severe facet arthropathy, as above. RPTAT:AAJJ Physician Daly Date Time Electronically viewed and signed by Physician Daly on 06/30/2018 16:37 RF/ CC: ALICE ESTRADA MD [id number] MEDICAL MAKING DECISION: The patient is a 88-year-old female, presenting with acute back pain after mechanical fall, was treated with Tylenol 650 mg p.o. for pain with good response, is stable for outpatient follow-up The differential diagnoses considered include but are not limited to caudal equina syndrome, spinal abscess, DJD, diskitis, lumbar radiculopathy. Departure Diagnosis: Primary Impression: Fall with no significant injury Additional Impression: Back pain Condition: Good Comments She was discharged with Tylenol I discussed the findings with the patient. I advised the patient to follow-up with the primary physician in about 2-3 days, sooner if needed and return if any concern. Disclaimer: Inadvertent spelling and grammatical errors are likely due to EHR/dictation software use and do not reflect on the overall quality of patient care. Also, please note that the electronic time recorded on this note does not necessarily reflect the actual time of the patient encounter. ALICE ESTRADA MD Jun 30, 2018 14:22
[2018-06-30 14:27] VITALS: PULSE 83; Ht 154.9 cm; Wt 47.7 kg
[2018-06-30] MEDS ORDERED: ACETAMINOPHEN 325 MG TAB PO ONE (15:30)
[2018-06-30] MEDS ORDERED: ACET-2047 PO (16:51)
[2018-06-30 17:00] VITALS: BP 148/86; RESP 18
== END 2018-06-30 17:28 | disposition home or self-care (01) ==
LOC: E/R 13:59
DX: M54.5 Low back pain (principal); I10 Essential (primary) hypertension; Z79.01 Long term (current) use of anticoagulants; Z86.73 Personal history of transient ischemic attack (TIA), and cerebral infarction without residual deficits
CPT/HCPCS: 72100